=== PATIENT | male | born 1950 | race African-American/Black ===

== ENCOUNTER 2017-05-09 16:18 | Emergency (ER) | payer MEDICARE, OTHER ==
[~2017-05-09] VITALS: Ht 175.3 cm; Wt 67.1 kg
[~2017-05-09 16:18] MED LIST: KEFLEX500 MG ORAL; NAPROXEN500 M1 ORAL
[2017-05-09] MEDS ORDERED: NKM (16:32)
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
[2017-05-09 16:55] VITALS: BP 134/94
[2017-05-09] MEDS ORDERED: Bacitracin Oint UD TOPIC ONE (17:00)
[2017-05-09] MEDS ORDERED: Lidocaine 1% MPF 10mg/ml 5ml IM ONE (17:00)
[2017-05-09] MEDS ORDERED: Tetanus/Diptheria/Pertussis Vaccine 0.5ml Syr IM ONE (17:00)
[2017-05-09] MEDS ORDERED: BACITRACIN-P28.35 GM TP (17:10)
[2017-05-09] MEDS ORDERED: DOXYCYCLINE MO100 MG ORAL (17:10)
[2017-05-09 17:26] VITALS: BP 134/94
== END 2017-05-09 17:57 | disposition home or self-care (01) ==
LOC: EMR 16:45
DX: L02.412 Cutaneous abscess of left axilla (principal); Z23 Encounter for immunization; I10 Essential (primary) hypertension; Z91.041 Radiographic dye allergy status; Z85.05 Personal history of malignant neoplasm of liver
CPT/HCPCS: 10060; 90471; 90715; 99283

== ENCOUNTER 2017-07-22 02:28 | Emergency (ER) | payer MEDICARE, OTHER ==
[~2017-07-22] VITALS: Ht 172.7 cm; Wt 63.0 kg
[~2017-07-22 02:28] MED LIST changes: +BACITRACIN-P28.35 GM TP; +DOXYCYCLINE MO100 MG ORAL; +NKM; +UNOBMED
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
[2017-07-22 06:00] VITALS: BP 142/83
[2017-07-22 06:28] VITALS: BP 137/86
== END 2017-07-22 06:28 | disposition home or self-care (01) ==
LOC: EDBD 02:28 → EMR 03:01
DX: F10.129 Alcohol abuse with intoxication, unspecified (principal); I10 Essential (primary) hypertension; Z86.73 Personal history of transient ischemic attack (TIA), and cerebral infarction without residual deficits; Z85.05 Personal history of malignant neoplasm of liver; Z91.041 Radiographic dye allergy status; Z91.013 Allergy to seafood
CPT/HCPCS: 99284

== ENCOUNTER 2018-09-02 00:43 | Emergency (ER) | payer MEDICARE, OTHER ==
[~2018-09-02] VITALS: Ht 180.3 cm; Wt 68.0 kg
[2018-09-02 00:44] VITALS: BP 109/74
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
--- NOTE | 2018-09-02 01:45 | NUR ---
ED Nurse Note: Patient is sleeping, easily arousable.
[2018-09-02 02:45] VITALS: BP 132/89
--- NOTE | 2018-09-02 03:10 | NUR ---
ED Nurse Note: Patient going down for CT of head and chest.
--- NOTE | 2018-09-02 03:45 | NUR ---
ED Nurse Note: Patient returned from CT.
[2018-09-02] MEDS ORDERED: IBUPROFEN600 MG ORAL (04:39)
[2018-09-02] MEDS ORDERED: NORCO 5-325 TA1 EACH ORAL (04:40)
[2018-09-02 04:45] VITALS: BP 148/87
--- NOTE | 2018-09-02 04:45 | NUR ---
ED Nurse Note: Patient sleeping, easily aroused but nods back off in seconds. Patient should be discharged later in the morning.
[2018-09-02 06:16] VITALS: BP 161/98
--- NOTE | 2018-09-02 07:09 | NUR ---
ED Nurse Note: Patient cleared for discharge, paperwork signed, patient verbalized understanding of discharge instructions. Patient A&ox4, ambulatory with steady gait. Patient departing with all personal belongings. ID band removed.
[2018-09-02 07:10] VITALS: BP 161/98
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
== END 2018-09-02 07:11 | disposition home or self-care (01) ==
LOC: EDBD 00:43 → EMR 02:00
DX: S42.011A Anterior displaced fracture of sternal end of right clavicle, initial encounter for closed fracture (principal); V43.62XA Car passenger injured in collision with other type car in traffic accident, initial encounter; Y92.410 Unspecified street and highway as the place of occurrence of the external cause; R51 Headache; I10 Essential (primary) hypertension; Z86.73 Personal history of transient ischemic attack (TIA), and cerebral infarction without residual deficits; Z85.05 Personal history of malignant neoplasm of liver
CPT/HCPCS: 70450; 71045; 71250; 99284